=== PATIENT | male | born 1975 | race Caucasian/White ===

== ENCOUNTER → 2022-10-22 | Outpatient (CLI) | payer OTHER ==
[2022-10-22 10:42] LABS: BASOPHILS % (AUTO) 0 % (0-10); EOSINOPHILS # (AUTO) 0.2 10^3/uL (0.0-0.3); EOSINOPHILS % (AUTO) 3 % (0-10); HEMATOCRIT 41 % (40-54); HEMOGLOBIN 14.4 g/dL (13.3-17.7); LYMPHOCYTES # (AUTO) 2.2 10^3/uL (1.0-4.0); LYMPHOCYTES % (AUTO) 32 % (12-44); MEAN CORPUSCULAR HEMOGLOBIN 29 pg (25-34); MEAN CORPUSCULAR HGB CONC 35 g/dL (32-36); MEAN CORPUSCULAR VOLUME 82 fL (80-99); MEAN PLATELET VOLUME 8.8 fL (9.0-12.2); MONOCYTES # (AUTO) 0.6 10^3/uL (0.0-1.0); MONOCYTES % (AUTO) 8 % (0-12); NEUTROPHILS # (AUTO) 3.7 10^3/uL (1.8-7.8); NEUTROPHILS % (AUTO) 56 % (42-75); PLATELET COUNT 229 10^3/uL (130-400); WHITE BLOOD COUNT 6.8 10^3/uL (4.3-11.0)
[2022-10-22 11:35] LABS: ALBUMIN 4.2 GM/DL (3.2-4.5); BILIRUBIN,TOTAL 0.4 MG/DL (0.1-1.0); CREATININE SERUM 0.81 MG/DL (0.60-1.30)
== END ==
LOC: WOUNDCARE 09:22
PROVIDERS: ATTEND Family Medicine
DX: Z04.2 Encounter for examination and observation following work accident (principal); I96 Gangrene, not elsewhere classified; S60.942A Unspecified superficial injury of right middle finger, initial encounter; E11.65 Type 2 diabetes mellitus with hyperglycemia; F17.290 Nicotine dependence, other tobacco product, uncomplicated; W27.0XXA Contact with workbench tool, initial encounter
CPT/HCPCS: 11042; 80053; 83036; 85025; G0463; 36415

== ENCOUNTER → 2022-10-28 | Outpatient (CLI) | payer OTHER | LOC: WOUNDCARE 09:55 | PROVIDERS: ATTEND Family Medicine | DX: Z04.2 Encounter for examination and observation following work accident (principal); S60.942A Unspecified superficial injury of right middle finger, initial encounter; E11.65 Type 2 diabetes mellitus with hyperglycemia; I10 Essential (primary) hypertension; E11.52 Type 2 diabetes mellitus with diabetic peripheral angiopathy with gangrene; F17.290 Nicotine dependence, other tobacco product, uncomplicated; W27.0XXA Contact with workbench tool, initial encounter | CPT/HCPCS: 11042; 87070; 87205; G0463; 87077 ==

== ENCOUNTER → 2022-11-04 | Outpatient (CLI) | payer OTHER | LOC: WOUNDCARE 09:53 | PROVIDERS: ATTEND Family Medicine | DX: S60.942A Unspecified superficial injury of right middle finger, initial encounter (principal); E11.65 Type 2 diabetes mellitus with hyperglycemia; W27.0XXA Contact with workbench tool, initial encounter; Z04.2 Encounter for examination and observation following work accident; F17.290 Nicotine dependence, other tobacco product, uncomplicated; E11.52 Type 2 diabetes mellitus with diabetic peripheral angiopathy with gangrene | CPT/HCPCS: 11042; G0463 ==

== ENCOUNTER → 2022-11-10 | Outpatient (CLI) | payer OTHER | LOC: WOUNDCARE 09:57 | PROVIDERS: ATTEND Family Medicine | DX: S60.942A Unspecified superficial injury of right middle finger, initial encounter (principal); W27.0XXA Contact with workbench tool, initial encounter; Z04.2 Encounter for examination and observation following work accident; E11.65 Type 2 diabetes mellitus with hyperglycemia; F17.290 Nicotine dependence, other tobacco product, uncomplicated; E11.52 Type 2 diabetes mellitus with diabetic peripheral angiopathy with gangrene; I96 Gangrene, not elsewhere classified | CPT/HCPCS: 11042; G0463 ==

== ENCOUNTER → 2022-11-20 | Outpatient (CLI) | payer OTHER | LOC: WOUNDCARE 08:27 | PROVIDERS: ATTEND Family Medicine | DX: Z04.2 Encounter for examination and observation following work accident (principal); S60.942A Unspecified superficial injury of right middle finger, initial encounter; E11.65 Type 2 diabetes mellitus with hyperglycemia; F17.290 Nicotine dependence, other tobacco product, uncomplicated; W27.0XXA Contact with workbench tool, initial encounter | CPT/HCPCS: 99212 ==

== ENCOUNTER 2023-08-14 11:36 | Inpatient (IN) | payer OTHER ==
[~2023-08-14] VITALS: Ht 179 cm; Wt 90.2 kg
[2023-08-14] MEDS ORDERED: NS IV 1000 ML 1,000 ML IV STA (11:49)
[2023-08-14] MEDS ORDERED: fentaNYL INJECTION 100 MCG/2 ML VIAL IVP STA ×2 (11:49→12:00)
[2023-08-14] MEDS ORDERED: ONDANSETRON INJECTION 4 MG/2 ML (SDV) IVP ONE (12:00)
--- NOTE | 2023-08-14 12:00 | ED Abdominal Pain ---
General Chief Complaint: Abdominal/GI Problems Stated Complaint: ABD PAIN Source of Information: Patient Exam Limitations: No Limitations (EVANGELINA MACKEY) History of Present Illness Date Seen by Provider: Aug 14, 2023 Time Seen by Provider: 11:57 Initial Comments Patient is a 47-year-old male who has a history of diverticulitis who presents ED with generalized abdominal pain. This pain started last night. He states the pain comes in waves crampy and feels like somebody is digging into his abdomen. Patient in moderate distress on arrival and tearful. Reports vomiting since last night that appears yellowish and bile. He reports a bowel movement this morning that was normal. Has been attempting to take anti-inflammatories without much improvement. No history of previous abdominal surgery. Denies chest pain, shortness of breath, headache, dizziness, visual changes, pain with urination frequent urination dark urine. Denies history of kidney stones. Denies of any dark tarry stools but did report greenish mucousy stool this morning. (EVANGELINA MACKEY) Allergies and Home Medications Allergies Coded Allergies: No Known Drug Allergies (Unverified , 10/23/22) Patient Home Medication List Home Medication List Reviewed: Yes (EVANGELINA MACKEY) Gabapentin (Gabapentin) 800 Mg Tablet, 800 MG PO TID, (Reported) Entered as Reported by: LEA HERNANDEZ on 08/14/231447 Last Action: Reviewed Lisinopril (Lisinopril) 20 Mg Tablet, 20 MG PO 1200, (Reported) Entered as Reported by: LEA HERNANDEZ on 08/14/231447 Last Action: Continued Melatonin (Melatonin) 10 Mg Tablet, 10 MG PO HS PRN for SLEEP, (Reported) Entered as Reported by: LEA HERNANDEZ on 08/14/231447 Last Action: Continued Phentermine HCl (Phentermine HCl) 30 Mg Capsule, Unknown Dose PO DAILY, (Reported) Entered as Reported by: LEA HERNANDEZ on 08/14/231447 Last Action: Last Taken Edited [Nugenix Total T] , 1 EA PO DAILY, (Reported) Entered as Reported by: LEA HERNANDEZ on 08/14/231447 Last Action: Reviewed Review of Systems Review of Systems Constitutional: No chills, No diaphoresis, No malaise, No weakness EENTM: No Double Vision, No Eye Pain Respiratory: Denies Cough, Denies Orthopnea Cardiovascular: Denies Chest Pain Gastrointestinal: Abdominal Pain; Denies Constipated, Denies Diarrhea; Nausea, Vomiting Genitourinary: Denies Burning, Denies Discharge, Denies Drainage, Denies Frequency Musculoskeletal: No back pain, No joint pain (EVANGELINA MACKEY) All Other Systems Reviewed Negative Unless Noted: Yes (EVANGELINA MACKEY) Past Uqjrcyh-Rusjwo-Enctzp Hx Immunizations Up To Date Tetanus Booster (TDap): Less than 5yrs (EVANGELINA MACKEY) Past Medical History Chronic Back Pain Sleep Difficulties, Anxiety Adverse Reaction/Blood Tranf: No (EVANGELINA MACKEY) Physical Exam Vital Signs Vital Signs - First Documented 08/14/23 11:38 Temp 35.5 Pulse 82 Resp 17 B/P (MAP) 183/146 (158) Pulse Ox 98 O2 Delivery Room Air (VIRGILIO BILLINGSLEY MD) Vital Signs Capillary Refill : (EVANGELINA MACKEY) Height/Weight/BMI Height: '" Weight: lbs. oz. kg; BMI Method:Estimated General Appearance: WD/WN, moderate distress HEENT: PERRL/EOMI, normal ENT inspection, TMs normal, pharynx normal Neck: non-tender, full range of motion, supple Respiratory: chest non-tender, lungs clear, normal breath sounds, no respiratory distress, no accessory muscle use Cardiovascular: regular rate, rhythm, no edema, no gallop, no JVD Gastrointestinal: normal bowel sounds, non tender, tenderness (Generalized tenderness) Extremities: normal range of motion, non-tender, normal inspection, no pedal edema Back: normal inspection, no CVA tenderness, no vertebral tenderness Neurologic/Psychiatric: carbon electrodes supervisor II-XII nml as tested, no motor/sensory deficits, alert, normal mood/affect Skin: normal color, warm/dry (EVANGELINA MACKEY) Focused Exam Lactate Level 08/14/23 13:21: Lactic Acid Level 1.12 (VIRGILIO BILLINGSLEY MD) Lactic Acid Level Laboratory Tests Test 08/14/23 13:21 Lactic Acid Level 1.12 MMOL/L (0.50-2.00) (VIRGILIO BILLINGSLEY MD) Progress/Results/Core Measures Results/Orders Lab Results Laboratory Tests Test 08/14/23 11:48 08/14/23 13:17 08/14/23 13:21 Range/Units White Blood Count 8.3 4.3-11.0 10^3/uL Red Blood Count 5.11 4.30-5.52 10^6/uL Hemoglobin 14.7 13.3-17.7 g/dL Hematocrit 43 40-54 % Mean Corpuscular Volume 83 80-99 fL Mean Corpuscular Hemoglobin 29 25-34 pg Mean Corpuscular Hemoglobin Concent 35 32-36 g/dL Red Cell Distribution Width 12.4 10.0-14.5 % Platelet Count 239 130-400 10^3/uL Mean Platelet Volume 9.2 9.0-12.2 fL Immature Granulocyte % (Auto) 0 % Neutrophils (%) (Auto) 77 H 42-75 % Lymphocytes (%) (Auto) 14 12-44 % Monocytes (%) (Auto) 7 0-12 % Eosinophils (%) (Auto) 2 0-10 % Basophils (%) (Auto) 0 0-10 % Neutrophils # (Auto) 6.3 1.8-7.8 10^3/uL Lymphocytes # (Auto) 1.2 1.0-4.0 10^3/uL Monocytes # (Auto) 0.6 0.0-1.0 10^3/uL Eosinophils # (Auto) 0.1 0.0-0.3 10^3/uL Basophils # (Auto) 0.0 0.0-0.1 10^3/uL Immature Granulocyte # (Auto) 0.0 0.0-0.1 10^3/uL Sodium Level 139 135-145 MMOL/L Potassium Level 3.7 3.6-5.0 MMOL/L Chloride Level 105 98-107 MMOL/L Carbon Dioxide Level 25 21-32 MMOL/L Anion Gap 9 5-14 MMOL/L Blood Urea Nitrogen 16 7-18 MG/DL Creatinine 0.89 0.60-1.30 MG/DL Estimat Glomerular Filtration Rate 105 BUN/Creatinine Ratio 18 Glucose Level 151 H 70-105 MG/DL Calcium Level 9.3 8.5-10.1 MG/DL Corrected Calcium 8.9 8.5-10.1 MG/DL Total Bilirubin 0.5 0.1-1.0 MG/DL Aspartate Amino Transf (AST/SGOT) 22 5-34 U/L Alanine Aminotransferase (ALT/SGPT) 18 0-55 U/L Alkaline Phosphatase 103 40-136 U/L Total Protein 8.0 6.4-8.2 GM/DL Albumin 4.5 3.2-4.5 GM/DL Lipase 16 8-78 U/L Urine Color YELLOW Urine Clarity CLEAR Urine pH 8.5 5-9 Urine Specific [place] 1.015 L 1.016-1.022 Urine Protein TRACE H NEGATIVE Urine Glucose (UA) NEGATIVE NEGATIVE Urine Ketones NEGATIVE NEGATIVE Urine Nitrite NEGATIVE NEGATIVE Urine Bilirubin NEGATIVE NEGATIVE Urine Urobilinogen 0.2 < = 1.0 MG/DL Urine Leukocyte Esterase NEGATIVE NEGATIVE Urine RBC (Auto) NEGATIVE NEGATIVE Urine RBC RARE /HPF Urine WBC RARE /HPF Urine Crystals PRESENT H /LPF Urine Amorphous Sediment LARGE MARIA DEL ROSARIO PHOSPHATE H /LPF Urine Bacteria NEGATIVE /HPF Urine Casts NONE /LPF Urine Mucus NEGATIVE /LPF Urine Culture Indicated NO Urine Opiates Screen POSITIVE H NEGATIVE Urine Oxycodone Screen NEGATIVE NEGATIVE Urine Methadone Screen NEGATIVE NEGATIVE Urine Barbiturates Screen NEGATIVE NEGATIVE Ur Tricyclic Antidepressants Screen NEGATIVE NEGATIVE Urine Phencyclidine Screen NEGATIVE NEGATIVE Urine Amphetamines Screen NEGATIVE NEGATIVE Urine Methamphetamines Screen NEGATIVE NEGATIVE Urine Benzodiazepines Screen POSITIVE H NEGATIVE Urine Cocaine Screen NEGATIVE NEGATIVE Urine Cannabinoids Screen NEGATIVE NEGATIVE Lactic Acid Level 1.12 0.50-2.00 MMOL/L (VIRGILIO BILLINGSLEY MD) Medications Given in ED Current Medications Medications Dose Ordered Sig/Mauricio Route Start Time Stop Time Status Last Admin Dose Admin Iohexol 100 ml ONCE ONCE IV 08/14/23 12:15 08/14/23 12:16 DC 08/14/23 12:19 80 ML Ondansetron HCl 4 mg ONCE ONCE IVP 08/14/23 12:00 08/14/23 12:01 DC 08/14/23 11:55 4 MG Promethazine HCl 25 mg ONCE ONCE IVP 08/14/23 12:15 08/14/23 12:16 DC 08/14/23 12:39 25 MG Sodium Chloride 100 ml ONCE ONCE IV 08/14/23 12:15 08/14/23 12:16 DC 08/14/23 12:19 100 ML (VIRGILIO BILLINGSLEY MD) Vital Signs/I&O 08/14/23 08/14/23 11:38 14:00 Temp 35.5 35.5 Pulse 82 90 Resp 17 18 B/P (MAP) 183/146 (158) 141/104 Pulse Ox 98 98 O2 Delivery Room Air Room Air (VIRGILIO BILLINGSLEY MD) Departure Communication (PCP) Reviewed previous ER visits, H&P, lab testing. Differential diagnosis gastroenteritis, colitis, small bowel obstruction. Severe abdominal pain with several bouts of vomiting since last night. Patient in moderate distress. Generalized tenderness. History of diabetes and high blood pressure. Patient actively vomiting bilious on arrival. Started Zosyn liter of fluid. Continue having pain with no improvement after initial dose of fentanyl. Did receive a second dose of 50 of fentanyl. Patient started vomiting again did receive Phenergan. Did have a small bowel movement today. CBC, CMP, lipase was ordered which was grossly unremarkable. Blood sugar 150. Denies of any current drug use. CT abdomen pelvis concern for early small bowel obstruction versus enteritis. Discussed patient with Dr. Gilliland general surgeon who felt like patient's history does not fit for small bowel obstruction recommended clear liquids, Cipro and Flagyl admit to the hospitalist. Patient was discussed with Dr. Giraldo who agreed to accept patient on behalf of Dr. Frazier (EVANGELINA MACKEY) Impression Primary Impression: Enteritis Disposition: ADMITTED INPATIENT Condition: Stable Admissions Decision to Admit Reason: Admit from ER (General) Decision to Admit/Date: Aug 14, 2023 Time/Decision to Admit Time: 12:39 (EVANGELINA MACKEY) ATTENDING PHYSICIAN NOTE: I was physically present as attending physician in the emergency department during the care of this patient, but I was not directly involved in the decision making or delivery of care for this patient. (VIRGILIO BILLINGSLEY MD) EVANGELINA MACKEY Aug 14, 2023 11:59 VIRGILIO BILLINGSLEY MD Aug 14, 2023 21:44
[2023-08-14 12:05] LABS: ALBUMIN 4.5 GM/DL (3.2-4.5); BASOPHILS % (AUTO) 0 % (0-10); EOSINOPHILS # (AUTO) 0.1 10^3/uL (0.0-0.3); EOSINOPHILS % (AUTO) 2 % (0-10); HEMATOCRIT 43 % (40-54); HEMOGLOBIN 14.7 g/dL (13.3-17.7); LYMPHOCYTES # (AUTO) 1.2 10^3/uL (1.0-4.0); LYMPHOCYTES % (AUTO) 14 % (12-44); MEAN CORPUSCULAR HEMOGLOBIN 29 pg (25-34); MEAN CORPUSCULAR HGB CONC 35 g/dL (32-36); MEAN CORPUSCULAR VOLUME 83 fL (80-99); MEAN PLATELET VOLUME 9.2 fL (9.0-12.2); MONOCYTES # (AUTO) 0.6 10^3/uL (0.0-1.0); MONOCYTES % (AUTO) 7 % (0-12); NEUTROPHILS # (AUTO) 6.3 10^3/uL (1.8-7.8); NEUTROPHILS % (AUTO) 77 % (42-75); PLATELET COUNT 239 10^3/uL (130-400); POTASSIUM 3.7 MMOL/L (3.6-5.0); WHITE BLOOD COUNT 8.3 10^3/uL (4.3-11.0)
[2023-08-14 12:06] LABS: CALCIUM 9.3 MG/DL (8.5-10.1)
[2023-08-14 12:09] LABS: BILIRUBIN,TOTAL 0.5 MG/DL (0.1-1.0)
[2023-08-14 12:11] LABS: CREATININE SERUM 0.89 MG/DL (0.60-1.30)
[2023-08-14] MEDS ORDERED: HOLD METFORMIN - RECEIVED CONTRAST 20 ML VIAL IV SCH (12:15)
[2023-08-14] MEDS ORDERED: IOHEXOL 350 MG/ML 100 ML (OMNIPAQUE 350) VIAL IV ONE (12:15)
[2023-08-14] MEDS ORDERED: NS 100 ML (IVPB) BAG IV ONE (12:15)
[2023-08-14] MEDS ORDERED: PROMETHAZINE INJ 25 MG/ML VIAL IVP ONE (12:15)
--- NOTE | 2023-08-14 12:27 | Diagnostic Imaging Report ---
EXAMINATION: CT abdomen and pelvis with intravenous contrast. TECHNIQUE: Multiple contiguous axial images were obtained through the abdomen and pelvis after the uneventful administration of intravenous contrast. All CT scans use one or more of the following dose optimizing techniques: automated exposure control, MA and/or KvP adjustment based on patient size and exam type or iterative reconstruction. HISTORY: Generalized abdominal pain. COMPARISON: None available. FINDINGS: The heart is unremarkable. The included lung bases are clear. The liver, spleen, pancreas, adrenal glands, and kidneys have a normal appearance. The gallbladder is unremarkable. There is no pathologically enlarged mesenteric or retroperitoneal adenopathy. Mildly distended fluid-filled loops of small bowel are seen in the left hemiabdomen. Hlbdg-mw-xospuruc volume of stool is seen in the colon. The appendix is visualized in the right lower quadrant and has a normal appearance. A small amount of free fluid is seen in the pelvis. There is no free air. No acute osseous abnormalities. There is calcified aortic and iliac atherosclerotic plaque without aneurysm. Ureters and bladder are grossly normal. There is no free air, loculated collection, or adenopathy in the pelvis. IMPRESSION: 1. Findings most suggestive of early small bowel obstruction versus enteritis. Given the stool burden, no high-grade obstruction is seen at this time. Surgical consultation and Gastrografin small bowel follow-through could be considered to further evaluate. Dictated by: Dictated on workstation # [id number]
[2023-08-14 13:28] LABS: CLARITY,URINE CLEAR; COLOR,URINE YELLOW; GLUCOSE, URINE (UA) NEGATIVE (NEGATIVE); KETONES,URINE NEGATIVE (NEGATIVE); NITRITE,URINE NEGATIVE (NEGATIVE); PH,URINE 8.5 (5-9); PROTEIN,URINE TRACE (NEGATIVE)
[2023-08-14 13:29] LABS: AMORPHOUS SEDIMENT,UR LARGE AMOR PHOSPHATE /LPF; BACTERIA,URINE NEGATIVE /HPF; BILIRUBIN,URINE NEGATIVE (NEGATIVE); LEUKOCYTE ESTERASE ,URINE NEGATIVE (NEGATIVE); RBC,URINE RARE /HPF; WBC,URINE RARE /HPF
--- NOTE | 2023-08-14 13:30 | History & Physical-Hospitalist ---
FLACO ENGLAND MD, RESIDENT 08/14/23 1330: History of Present Illness HPI/Chief Complaint CC: Abdominal pain Patient states he has been having severe abdominal pain since midnight last night. He states he was in his usual state of health until he started having severe and persistent left lower quadrant abdominal pain. He also states that he feels it in the right lower quadrant but is not as severe in that location. He states he has been having persistent vomiting that was initially bilious but most recently turned into bilious with the appearance of stool. He did have a bowel movement this morning but states it was small. He denies any fevers but states he has been feeling quite cold. Denies any chest pain, shortness of breath, dysuria. He states that he vapes, drinks alcohol maybe 1 time per month and denies any drug use. He did later state that he takes kratom daily for energy and for pain relief related to ACL surgery. He denies eating any strange foods recently and states that nobody else in his family has similar symptoms. He does take MiraLAX daily to keep his bowels regular. Last bowel movement before this morning was yesterday. Patient has a history of type 2 diabetes, hypertension and anxiety. The only medication he takes at this time is lisinopril, phentermine occasionally and hydroxyzine as needed. Source: patient, police Exam Limitations: no limitations Date Seen 08/14/23 Time Seen by a Provider: 13:27 Attending Physician No,Local Physician PCP Admitting Physician: Attending Physician: Referring Physician Date of Admission Home Medications & Allergies Home Medications Reviewed patient Home Medication Reconciliation performed by pharmacy medication reconciliations senior laboratory technician and/or nursing. Patients Allergies have been reviewed. Allergies Allergies Coded Allergies No Known Drug Allergies (Unverified10/23/22) Past Bvkajno-Vvomfo-Ghdpjd Hx Immunizations Up To Date Hepatitis A: No Hepatitis B: No Current Status Primary Language: B[place]ian Past Medical History Chronic Back Pain Sleep Difficulties, Anxiety Adverse Reaction/Blood Tranf: No Review of Systems Constitutional: chills; No fever EENTM: No nose congestion Respiratory: No cough, No dyspnea on exertion, No short of breath Cardiovascular: No chest pain, No edema, No palpitations Gastrointestinal: abdominal pain, constipation; No diarrhea; nausea, vomiting Genitourinary: No dysuria Psychiatric/Neurological: Denies Anxiety Physical Exam Physical Exam Vital Signs Capillary Refill : Height, Weight, BMI Height: '" Weight: lbs. oz. kg; BMI Method:Estimated General Appearance: Mild Distress HEENT: Normal ENT Inspection Neck: Full Range of Motion, Normal Inspection Respiratory: Chest Non Tender, Lungs Clear, Normal Breath Sounds, No Accessory Muscle Use, No Respiratory Distress Cardiovascular: Regular Rate, Rhythm, No Edema, No Murmur Gastrointestinal: Normal Bowel Sounds, Soft; No Guarding, No Hepatomegaly, No Mass; Tenderness (Diffusely tender to palpation however worse in the left lower quadrant) Extremity: No Pedal Edema Neurologic/Psychiatric: Alert, Oriented x3 Skin: Normal Color, Warm/Dry Results Results/Procedures Labs Laboratory Tests 08/14/23 11:48 Patient resulted labs reviewed. Imaging: Reviewed Imaging Films, Reviewed Imaging Report Imaging CT abdomen/pelvis (08/14/2023): IMPRESSION: 1. Findings most suggestive of early small bowel obstruction versus enteritis. Given the stool burden, no high-grade obstruction is seen at this time. Surgical consultation and Gastrografin small bowel follow-through could be considered to further evaluate. Assessment/Plan Admission Diagnosis Persistent abdominal pain concerning for small bowel obstruction versus enteritis Admission Status: Inpatient Order (span 2 midnights) Reason for Inpatient Admission: Observation for possible obstruction, significant pain and vomiting Diagnosis/Problems Diagnosis/Problems (1) Nausea & vomiting Status: Acute Assessment & Plan: Patient presenting with acute abdominal pain with persistent nausea and vomiting. CT scan was notable for possible early small bowel obstruction versus enteritis however there was mild to moderate stool burden. Given that patient has had a bowel movement this morning and is passing gas, differential is leaning towards enteritis. However patient did vomit up stool during evaluation in the ED. Patient also has been using kratom which could be contributing to patient's nausea and vomiting and constipation. Plan: General surgery consulted, appreciate recommendations Antiemetics Clear liquid diet as tolerated Starting Cipro and Flagyl for enteritis treatment If patient continues to have significant vomiting, will insert NG tube (2) Enteritis Status: Acute Assessment & Plan: See above (3) Type 2 diabetes mellitus Status: Chronic Assessment & Plan: Patient not on any medications for diabetes at home. Plan: Sliding scale insulin Qualifiers: Diabetes mellitus mcfp insulin use: without terminal clerk use Diabetes mellitus complication status: without complication Qualified Codes: E11.9 - Type 2 diabetes mellitus without complications (4) Hypertension Status: Chronic Assessment & Plan: Patient on lisinopril at home. Has not taken his medication this morning. Plan: Restart home medication once med rec has been completed Qualifiers: Hypertension type: primary hypertension Qualified Codes: I10 - Essential (primary) hypertension (5) Anxiety Status: Chronic Assessment & Plan: Patient on hydroxyzine as needed. Will restart once med rec has been completed. JENNY CARDOSO DO 08/15/23 0616: History of Present Illness HPI/Chief Complaint Chief complaint: Abdominal pain HPI: This is a 47-year-old male who presented with abdominal pain found to have enteritis so we will provide supportive care and proton pump inhibitor and IV fl uids. He is currently sleeping. Source: patient Exam Limitations: no limitations Past Szbtjxm-Lbmxzk-Kfnbjv Hx Patient Social History Marrital Status: single Employed/Student: unemployed Smoking Status: Current Everyday Smoker Review of Systems Constitutional: see HPI, weakness Gastrointestinal: abdominal pain, nausea, vomiting Physical Exam Physical Exam General Appearance: No Apparent Distress, Chronically ill Respiratory: Lungs Clear, Normal Breath Sounds Cardiovascular: Regular Rate, Rhythm Neurologic/Psychiatric: Alert, Oriented x3 Assessment/Plan Admission Diagnosis Assessment: SBO Enteritis Plan: IV antibiotics Supportive care Admission Status: Inpatient Order (span 2 midnights) Reason for Inpatient Admission: FLACO Matthews MD, RESIDENT Aug 14, 2023 13:30 JENNY CARDOSO DO Aug 15, 2023 06:16
[2023-08-14 13:33] LABS: AMPHETAMINE SCREEN, URINE NEGATIVE (NEGATIVE); BARBITURATE SCREEN URINE NEGATIVE (NEGATIVE); CANNABINOID SCREEN, URINE NEGATIVE (NEGATIVE); COCAINE SCREEN URINE NEGATIVE (NEGATIVE); METHADONE STAT NEGATIVE (NEGATIVE); OPIATE SCREEN URINE POSITIVE (NEGATIVE); OXYCODONE STAT NEGATIVE (NEGATIVE); TRICYCLIC ANTIDEPRESSANTS SCRE NEGATIVE (NEGATIVE)
[2023-08-14] MEDS ORDERED: ACETAMINOPHEN 325 MG TABLET PO PRN (14:15)
[2023-08-14] MEDS ORDERED: diphenhydrAMINE INJ 50 MG/ML VIAL IVP PRN (14:15)
[2023-08-14] MEDS ORDERED: CALCIUM CARBONATE 500 MG CHEW TABLET PO PRN (14:15)
[2023-08-14] MEDS ORDERED: NALOXONE 0.4 MG/ML 1 ML VIAL IV PRN (14:15)
[2023-08-14] MEDS ORDERED: ONDANSETRON INJECTION 4 MG/2 ML (SDV) IV PRN (14:15)
[2023-08-14] MEDS ORDERED: diphenhydrAMINE 25 MG TABLET PO PRN (14:15)
[2023-08-14] MEDS ORDERED: LACTULOSE SYRUP 10GM/15ML 30ML UDC PO PRN (14:15)
[2023-08-14] MEDS ORDERED: MILK OF MAGNESIA 400 MG/5 ML 30 ML UDC PO PRN (14:15)
[2023-08-14] MEDS ORDERED: BISACODYL 10 MG SUPPOSITORY PR PRN (14:15)
[2023-08-14] MEDS ORDERED: ONDANSETRON 4 MG ORAL DISSOLVE TABLET PO PRN (14:15)
[2023-08-14] MEDS ORDERED: ANTACID SUSPENSION 30 ML UDC PO PRN (14:15)
[2023-08-14] MEDS ORDERED: MELATONIN 3 MG TABLET PO PRN (14:15)
[2023-08-14] MEDS ORDERED: LISI20TA26 PO (14:48)
[2023-08-14] MEDS ORDERED: NUGENIX TOTAL T PO (14:48)
[2023-08-14] MEDS ORDERED: MELA10TA2 PO (14:48)
[2023-08-14] MEDS ORDERED: GABA800T10 PO (14:48)
[2023-08-14] MEDS ORDERED: PHEN30CA21 PO (14:48)
[2023-08-14] MEDS ORDERED: ENOXAPARIN 40 MG/0.4 ML SYRINGE SC SCH (15:00)
[2023-08-14] MEDS: METOCLOPRAMIDE INJ 10 MG/2 ML IVP SCH ×2 (15:00→21:09)
[2023-08-14] MEDS: CIPROFLOXACIN IV 400MG/200ML 200 ML IV SCH (15:01)
[2023-08-14] MEDS: NS IV 1000 ML 1,000 ML IV SCH ×2 (15:01→23:42)
[2023-08-14] MEDS: metroNIDAZOLE 500MG/100ML IVPB 100 ML IV SCH ×2 (15:01→21:09)
[2023-08-14] MEDS: inSUlin ASPART 1 UNIT/0.01 ML (PER UNIT) SC SCH ×2 (15:53→20:06)
[2023-08-14] MEDS ORDERED: MELATONIN 10 MG TABLET PO PRN (17:45)
[2023-08-14] MEDS: DOCUSATE SODIUM 100 MG CAPSULE PO SCH (19:33)
[2023-08-14] MEDS: morphine INJ 4 MG/ML 1 ML (VIAL/SYRINGE) IV PRN ×2 (19:33→23:40)
[2023-08-14] MEDS: SENNOSIDES 8.6 MG TABLET PO SCH (19:33)
[2023-08-14 20:45] VITALS: BP 137/87
[2023-08-14] MEDS: KETOROLAC INJ 15 MG/ML VIAL IV PRN (21:17)
[2023-08-14 23:23] VITALS: BP 114/67
[2023-08-15] MEDS: CIPROFLOXACIN IV 400MG/200ML 200 ML IV SCH (02:45)
[2023-08-15] MEDS: METOCLOPRAMIDE INJ 10 MG/2 ML IVP SCH ×2 (02:45→08:08)
[2023-08-15] MEDS: KETOROLAC INJ 15 MG/ML VIAL IV PRN (02:45)
[2023-08-15] MEDS: NS IV 1000 ML 1,000 ML IV SCH (02:51)
[2023-08-15 03:34] VITALS: BP 110/63
[2023-08-15] MEDS: metroNIDAZOLE 500MG/100ML IVPB 100 ML IV SCH (05:47)
[2023-08-15 06:10] LABS: HEMATOCRIT 36 % (40-54); HEMOGLOBIN 12.2 g/dL (13.3-17.7); MEAN CORPUSCULAR HEMOGLOBIN 29 pg (25-34); MEAN CORPUSCULAR HGB CONC 34 g/dL (32-36); MEAN CORPUSCULAR VOLUME 84 fL (80-99); MEAN PLATELET VOLUME 9.6 fL (9.0-12.2); PLATELET COUNT 181 10^3/uL (130-400); WHITE BLOOD COUNT 5.4 10^3/uL (4.3-11.0)
[2023-08-15 06:22] LABS: ALBUMIN 3.3 GM/DL (3.2-4.5)
[2023-08-15 06:23] LABS: POTASSIUM 3.4 MMOL/L (3.6-5.0)
[2023-08-15 06:24] LABS: CALCIUM 7.9 MG/DL (8.5-10.1)
[2023-08-15 06:25] LABS: TOTAL PROTEIN 5.8 GM/DL (6.4-8.2)
[2023-08-15 06:27] LABS: BILIRUBIN,TOTAL 0.5 MG/DL (0.1-1.0)
[2023-08-15] MEDS: inSUlin ASPART 1 UNIT/0.01 ML (PER UNIT) SC SCH ×2 (06:27→11:21)
[2023-08-15 06:29] LABS: CREATININE SERUM 0.78 MG/DL (0.60-1.30)
[2023-08-15] MEDS ORDERED: POTASSIUM CHLORIDE 20 MEQ TABLET PO ONE (06:45)
--- NOTE | 2023-08-15 07:34 | Diagnostic Imaging Report ---
INDICATION: Generalized abdominal pain. COMPARISON: CT abdomen and pelvis dated 08/14/2023. FINDINGS: Frontal and upright radiographic views of the abdomen were obtained. Small bowel dilatation seen on previous CT is not apparent on this study. No abnormal air-fluid levels are seen. There is no large collection of free intraperitoneal air. No unexpected extraosseous calcifications or radiopaque foreign bodies are identified. Included portions of the lung bases show probable left basilar atelectasis. Osseous structures show no acute abnormalities. IMPRESSION: 1. Small bowel gas pattern shows improvement when compared to previous CT dated 08/14/2023. Dictated by: Dictated on workstation # [id number]
[2023-08-15 07:50] VITALS: BP 103/61
[2023-08-15] MEDS: DOCUSATE SODIUM 100 MG CAPSULE PO SCH (08:08)
[2023-08-15] MEDS: SENNOSIDES 8.6 MG TABLET PO SCH (08:08)
[2023-08-15 08:17] VITALS: BP 103/61
[2023-08-15] MEDS ORDERED: NICOTINE 21 MG PATCH TD SCH (09:00)
--- NOTE | 2023-08-15 09:21 | Progress Note ---
FLACO ENGLAND MD, RESIDENT 08/15/23 0921: Subjective HPI/CC On Admission Date Seen by Provider: Aug 15, 2023 Time Seen by Provider: 08:30 Chief complaint: Abdominal pain HPI: This is a 47-year-old male who presented with abdominal pain found to have enteritis so we will provide supportive care and proton pump inhibitor and IV fluids. He is currently sleeping. Subjective/Events-last exam Patient is doing well this morning. States that he is still having some left lower quadrant pain that he rates a 3 out of 10. He did have some diarrhea yesterday. However his nausea and vomiting have greatly improved. He has been tolerating clear liquid diet and would like to eat some food this morning. He does feel significantly better compared to when he first came in. Review of Systems General: No Fatigue Pulmonary: No Dyspnea, No Cough Cardiovascular: No: Chest Pain, Palpitations, Edema Gastrointestinal: Abdominal Pain, Diarrhea; No: Nausea, Constipation Genitourinary: No Dysuria Focused Exam Lactate Level 08/14/23 13:21: Lactic Acid Level 1.12 Objective Exam Vital Signs Vital Signs Date Time Temp Pulse Resp B/P (MAP) Pulse Ox O2 Delivery O2 Flow Rate FiO2 08/15/23 08:18 Room Air 08/15/23 08:17 36.5 54 20 103/61 (75) 99 Capillary Refill : General Appearance: No Apparent Distress HEENT: Normal ENT Inspection, Pharynx Normal Neck: Full Range of Motion, Normal Inspection Respiratory: Chest Non Tender, Lungs Clear, Normal Breath Sounds, No Accessory Muscle Use, No Respiratory Distress Cardiovascular: Regular Rate, Rhythm, No Edema, No Murmur Gastrointestinal: Normal Bowel Sounds, Soft, Tenderness (Left lower quadrant) Extremity: No Pedal Edema Neurologic/Psychiatric: Alert, Oriented x3 Skin: Normal Color, Warm/Dry Results/Procedures Lab Laboratory Tests 08/14/23 11:48 08/15/23 05:30 Patient resulted labs reviewed. Imaging: Reviewed Imaging Films, Reviewed Imaging Report Assessment/Plan Assessment and Plan Assess & Plan/Chief Complaint Patient is a 47-year-old male presenting with persistent nausea and vomiting concerning for enteritis versus small bowel obstruction. Based on this morning symptoms, more consistent with enteritis. Diagnosis/Problems Diagnosis/Problems (1) Nausea & vomiting Status: Resolved Assessment & Plan: Patient presenting with acute abdominal pain with persistent nausea and vomiting. CT scan was notable for possible early small bowel obstruction versus enteritis however there was mild to moderate stool burden. Given that patient has had a bowel movement this morning and is passing gas, differential is leaning towards enteritis. However patient did vomit up stool during evaluation in the ED. Patient also has been using kratom which could be contributing to patient's nausea and vomiting and constipation. KUB from this morning noting improvement in bowel dilation and gas pattern. Plan: General surgery consulted, appreciate recommendations Antiemetics Clear liquid diet, okay to advance today Continue Cipro and Flagyl for enteritis treatment Discussed with patient to discontinue use of kratom as this is likely worsening his symptoms Qualifiers: Qualified Codes: R11.14 - Bilious vomiting Resolution Date/Time: 08/15/23 @ 09:19 (2) Enteritis Status: Acute Assessment & Plan: See above (3) Type 2 diabetes mellitus Status: Chronic Assessment & Plan: Patient not on any medications for diabetes at home. Plan: Sliding scale insulin Qualifiers: Qualified Codes: E11.9 - Type 2 diabetes mellitus without complications (4) Hypertension Status: Chronic Assessment & Plan: Patient on lisinopril at home. Continued home medication. Qualifiers: Qualified Codes: I10 - Essential (primary) hypertension JENNY CARDOSO DO 08/15/23 1908: Subjective Subjective/Events-last exam Doing well No pain reported Eating without diff Objective Exam General Appearance: No Apparent Distress, WD/WN, Chronically ill Assessment/Plan Assessment and Plan Assess & Plan/Chief Complaint Enteritis DC home FLACO ENGLAND MD, RESIDENT Aug 15, 2023 09:21 JENNY CARDOSO DO Aug 15, 2023 19:08
[2023-08-15] MEDS: morphine INJ 4 MG/ML 1 ML (VIAL/SYRINGE) IV PRN (10:02)
--- NOTE | 2023-08-15 11:14 | Physical Therapy Progress Note ---
Therapy Progress Note Patient lying in bed upon PT arrival. Patient states he has been getting out of bed Independently and ambulating on his own. Confirmed with nurse. No skilled PT at this time. ROLANDO FERRARO PT Aug 15, 2023 11:14
--- NOTE | 2023-08-15 11:36 | Discharge Summary ---
Discharge Summary Hospital Course Problems/Dx: (1) Nausea & vomiting Status: Resolved Qualifiers: Qualified Codes: R11.14 - Bilious vomiting (2) Enteritis Status: Acute (3) Type 2 diabetes mellitus Status: Chronic Qualifiers: Qualified Codes: E11.9 - Type 2 diabetes mellitus without complications (4) Hypertension Status: Chronic Qualifiers: Qualified Codes: I10 - Essential (primary) hypertension Hospital Course Date of Admission: Aug 14, 2023 at 14:03 Admission Diagnosis : Family Physician/Provider: No,Local Physician Date of Discharge: 08/15/23 Discharge Diagnosis: Gastroenteritis Hospital Course: Patient is a 47-year-old male with a past medical history of hypertension who p resented with severe abdominal pain. He states the onset was quite acute and persistent, in his left lower quadrant however also presenting diffusely. He was also having persistent bilious vomiting which eventually turned into the appearance of stool. CT abdomen/pelvis obtained in the ED was concerning for enteritis versus small bowel obstruction. General surgery was consulted who stated the his symptoms are not consistent with small bowel obstruction however should be admitted for observation. We started patient on clear liquid diet and had antiemetics as well as pain medication on board. We also started patient on antibiotics, ciprofloxacin and Flagyl for treatment of enteritis. Patient also took stool softeners and had diarrhea which eventually seemed to have resolved his symptoms. He had no further episodes of nausea, vomiting and his pain was much improved. He was otherwise stable prior to discharge. We will discharge patient home on ciprofloxacin and Flagyl to contribute a new treatment of his enteritis. Symptoms may have been secondary to kratom use, advised patient to discontinue use. Labs and Pending Lab Test: Laboratory Tests 08/14/23 11:48: White Blood Count 8.3, Red Blood Count 5.11, Hemoglobin 14.7, Hematocrit 43, Mean Corpuscular Volume 83, Mean Corpuscular Hemoglobin 29, Mean Corpuscular Hemoglobin Concent 35, Red Cell Distribution Width 12.4, Platelet Count 239, Mean Platelet Volume 9.2, Immature Granulocyte % (Auto) 0, Neutrophils (%) (Auto) 77H, Lymphocytes (%) (Auto) 14, Monocytes (%) (Auto) 7, Eosinophils (%) (Auto) 2, Basophils (%) (Auto) 0, Neutrophils # (Auto) 6.3, Lymphocytes # (Auto) 1.2, Monocytes # (Auto) 0.6, Eosinophils # (Auto) 0.1, Basophils # (Auto) 0.0, Immature Granulocyte # (Auto) 0.0, Sodium Level 139, Potassium Level 3.7, Chloride Level 105, Carbon Dioxide Level 25, Anion Gap 9, Blood Urea Nitrogen 16, Creatinine 0.89, Estimat Glomerular Filtration Rate 105, BUN/Creatinine Ratio 18, Glucose Level 151H, Calcium Level 9.3, Corrected Calcium 8.9, Total Bilirubin 0.5, Aspartate Amino Transf (AST/SGOT) 22, Alanine Aminotransferase (ALT/SGPT) 18, Alkaline Phosphatase 103, Total Protein 8.0, Albumin 4.5, Lipase 16 08/14/23 13:17: Urine Color YELLOW, Urine Clarity CLEAR, Urine pH 8.5, Urine Specific [place] 1.015L, Urine Protein TRACEH, Urine Glucose (UA) NEGATIVE, Urine Ketones NEGATIVE, Urine Nitrite NEGATIVE, Urine Bilirubin NEGATIVE, Urine Urobilinogen 0.2, Urine Leukocyte Esterase NEGATIVE, Urine RBC (Auto) NEGATIVE, Urine RBC RARE, Urine WBC RARE, Urine Crystals PRESENTH, Urine Amorphous Sediment LARGE [place]IA [place] PHOSPHATEH, Urine Bacteria NEGATIVE, Urine Casts NONE, Urine Mucus NEGATIVE, Urine Culture Indicated NO, Urine Opiates Screen POSITIVEH, Urine Oxycodone Screen NEGATIVE, Urine Methadone Screen NEGATIVE, Urine Barbiturates Screen NEGATIVE, Ur Tricyclic Antidepressants Screen NEGATIVE, Urine Phencyclidine Screen NEGATIVE, Urine Amphetamines Screen NEGATIVE, Urine Methamphetamines Screen NEGATIVE, Urine Benzodiazepines Screen POSITIVEH, Urine Cocaine Screen NEGATIVE, Urine Cannabinoids Screen NEGATIVE 08/14/23 13:21: Lactic Acid Level 1.12 08/14/23 15:51: Glucometer 149H 08/14/23 20:05: Glucometer 130H 08/15/23 05:30: White Blood Count 5.4, Red Blood Count 4.23L, Hemoglobin 12.2L, Hematocrit 36L, Mean Corpuscular Volume 84, Mean Corpuscular Hemoglobin 29, Mean Corpuscular Hemoglobin Concent 34, Red Cell Distribution Width 12.4, Platelet Count 181, Mean Platelet Volume 9.6, Sodium Level 140, Potassium Level 3.4L, Chloride Level 109H, Carbon Dioxide Level 25, Anion Gap 6, Blood Urea Nitrogen 17, Creatinine 0.78, Estimat Glomerular Filtration Rate 109, BUN/Creatinine Ratio 22, Glucose Level 128H, Calcium Level 7.9L, Corrected Calcium 8.5, Total Bilirubin 0.5, Aspartate Amino Transf (AST/SGOT) 15, Alanine Aminotransferase (ALT/SGPT) 13, Alkaline Phosphatase 73, Total Protein 5.8L, Albumin 3.3 08/15/23 11:18: Glucometer 115H Home Meds Active Reported Phentermine HCl 30 Mg Capsule Unknown Dose PO DAILY [Nugenix Total T] 1 Ea PO DAILY Melatonin 10 Mg Tablet 10 Mg PO HS PRN Gabapentin 800 Mg Tablet 800 Mg PO TID LAST FILLED 06-05-2023 #90/30 DAY SUPPLY Lisinopril 20 Mg Tablet 20 Mg PO 1200 LAST FILLED 03-17-2023 #90/ DAY SUPPLY Assessment/Pt Instructions Please see electronic discharge instructions given to patient. Discharge Instructions Discharge Diet: No Restrictions Activity as Tolerated: Yes Discharge Physical Examination Vital Signs Vital Signs Date Time Temp Pulse Resp B/P (MAP) Pulse Ox O2 Delivery O2 Flow Rate FiO2 08/15/23 08:18 Room Air 08/15/23 08:17 36.5 54 20 103/61 (75) 99 General Appearance: No Apparent Distress HEENT: Normal ENT Inspection Respiratory: Chest Non Tender, Lungs Clear, Normal Breath Sounds, No Accessory Muscle Use, No Respiratory Distress Cardiovascular: Regular Rate, Rhythm, No Edema, No Murmur Gastrointestinal: Normal Bowel Sounds, Soft, Tenderness (Mild LLQ tenderness) Extremity: No Pedal Edema Neurologic/Psychiatric: Alert, Oriented x3 Allergies: Coded Allergies: No Known Drug Allergies (Unverified , 10/23/22) Discharge Summary Date of Admission Aug 14, 2023 at 14:03 Date of Discharge Admission Diagnosis Assessment: SBO Enteritis Plan: IV antibiotics Supportive care Discharge Diagnosis Patient is a 47-year-old male presenting with persistent nausea and vomiting concerning for enteritis versus small bowel obstruction. Based on this morning symptoms, more consistent with enteritis. (1) Nausea & vomiting Status: Resolved Assessment & Plan: Patient presenting with acute abdominal pain with persistent nausea and vomiting. CT scan was notable for possible early small bowel obstruction versus enteritis however there was mild to moderate stool burden. Given that patient has had a bowel movement this morning and is passing gas, differential is leaning towards enteritis. However patient did vomit up stool during evaluation in the ED. Patient also has been using kratom which could be contributing to patient's nausea and vomiting and constipation. KUB from this morning noting improvement in bowel dilation and gas pattern. Plan: General surgery consulted, appreciate recommendations Antiemetics Clear liquid diet, okay to advance today Continue Cipro and Flagyl for enteritis treatment Discussed with patient to discontinue use of kratom as this is likely worsening his symptoms Qualifiers: Qualified Codes: R11.14 - Bilious vomiting (2) Enteritis Status: Acute Assessment & Plan: See above (3) Type 2 diabetes mellitus Status: Chronic Assessment & Plan: Patient not on any medications for diabetes at home. Plan: Sliding scale insulin Qualifiers: Qualified Codes: E11.9 - Type 2 diabetes mellitus without complications (4) Hypertension Status: Chronic Assessment & Plan: Patient on lisinopril at home. Continued home medication. Qualifiers: Qualified Codes: I10 - Essential (primary) hypertension FLACO ENGLAND MD, RESIDENT Aug 15, 2023 11:36
[2023-08-15 11:38] VITALS: BP 112/74
[2023-08-15] MEDS ORDERED: METR-145 PO (11:38)
[2023-08-15] MEDS ORDERED: CIPR500T5 PO (11:38)
--- NOTE | 2023-08-15 13:08 | CONSULTATION REPORT ---
DATE OF SERVICE: 08/15/2023 HISTORY OF PRESENT ILLNESS: The patient is a 47-year-old male who was seen in consultation with Dr. Gilliland. The patient reports to [facility] emergency department with episodes of left side abdominal pain. He reported that this started last night and reports that it was crampy and would come in waves. He did report episodes of nausea and vomiting, however, no hematemesis or any coffee-ground emesis. He did report a bowel movement yesterday. He also denies any heartburn. He did undergo a CT scan in the Emergency Department with findings that were suggestive of an early small-bowel obstruction versus enteritis. He was admitted, started on IV antibiotics as well as bowel rest. He reports that his symptoms are better this morning and that he has had transitioned to a regular diet. He reports that he did have some oatmeal this morning and did get nauseous, however, no vomiting. He reports that his symptoms have greatly improved from admission. MEDICAL HISTORY: Hypertension, chronic back pain, anxiety. SURGICAL HISTORY: Right knee ACL repair. ALLERGIES: No known drug allergies. MEDICATIONS: Gabapentin 800 mg t.i.d., lisinopril 20 mg daily, melatonin 10 mg at bedtime p.r.n., phentermine 30 mg daily, Nugenix Total-T daily. SOCIAL HISTORY: Positive for vaping. Negative for alcohol. FAMILY HISTORY: Noncontributory. VITAL SIGNS: Temperature is 36.5 degrees Celsius, pulse 54, respirations 20, blood pressure is 103/61, pulse 99% on room air. REVIEW OF SYSTEMS: This is a well-nourished male in no acute distress. He is not experiencing any shortness of breath or difficulty breathing. No chest pain, palpitations or diaphoresis. He did report nausea and vomiting as well as left-sided abdominal pain. No diarrhea or constipation. No red blood per rectum. No dark tarry stools. No fever or chills. No recent inadvertent weight loss. All other review of systems negative. PHYSICAL EXAM: CHEST: Clear. Good breath sounds bilaterally. HEART: Regular, no murmurs. EXTREMITIES: No lower extremity edema. Negative Homans sign. HEENT: No scleral icterus. No cervical lymphadenopathy. ABDOMEN: Soft, nondistended. There is some very mild discomfort with deep palpation in the left upper abdominal quadrant. No peritoneal signs. No palpable masses. SKIN: Warm, dry and pink. NEUROLOGIC: Awake, alert and oriented x3. ASSESSMENT AND PLAN: A 47-year-old male with enteritis. At this time, he is currently on antibiotics with Cipro and Flagyl as well as antinausea medications. He was started on a clear liquid diet and has since been advanced to a diabetic diet and reports that he is tolerating this better. At this time, we will continue with IV antibiotics as well as IV fluids and bowel rest. Once his symptoms are resolved, he may be discharged home. Job ID: [id number] DocumentID: [id number] Dictated Date: 08/15/2023 11:04:51 [employer] Operator Date: 08/15/2023 13:05:00 Dictated By: CHANEL SHAHID APRN
== END 2023-08-15 12:45 | disposition home or self-care (01) | DRG 392 ==
LOC: EDUNIT# 11:36 → ER 11:40 → 4TH 14:03 → OBSVTOIN 14:03
PROVIDERS: ADMIT Internal Medicine; ATTEND Internal Medicine
DX: K52.9 Noninfective gastroenteritis and colitis, unspecified (principal); E11.9 Type 2 diabetes mellitus without complications; I10 Essential (primary) hypertension; F41.9 Anxiety disorder, unspecified; M54.9 Dorsalgia, unspecified; G89.29 Other chronic pain; F17.200 Nicotine dependence, unspecified, uncomplicated; Z79.899 Other long term (current) drug therapy
CPT/HCPCS: 36415; 74019; 74177; 80053; 80306; 81000; 82947; 83605; 83690; 85025; 85027; 99283